=== PATIENT | male | born 1945 | race Caucasian/White ===

== ENCOUNTER → 2025-02-21 13:36 | Outpatient (REF) | payer MEDICARE, SELFPAY | LOC: RAD 13:36 | PROVIDERS: ATTENDING PHYSICIAN Surgery | DX: K40.20 Bilateral inguinal hernia, without obstruction or gangrene, not specified as recurrent (principal) | CPT/HCPCS: 74177; Q9967 ==

== ENCOUNTER 2025-03-27 06:20 | Day surgery (SDC) | payer MEDICARE, SELFPAY ==
[2025-03-13 09:18] LABS: Hematocrit 46.7 % (39.0-52.0); Hemoglobin 15.3 g/dL (13.0-18.0); Mean Corp Hgb Conc. 32.8 g/dL (33.0-37.0); Mean Corpuscular Volume 90.9 fL (80.0-94.0); Platelet Count 197 10^3/uL (130-400); Red Cell Dist. Width 12.7 % (11.5-14.5)
[2025-03-13 10:14] LABS: Blood Urea Nitrogen 16 mg/dl (9-20); Calcium 9.3 mg/dl (8.4-10.2); Carbon Dioxide 28 mmol/L (22-30); Chloride 107 mmol/L (98-107); Glucose 86 mg/dl (70-99); Potassium 4.2 mmol/L (3.5-5.1); Sodium 141 mmol/L (135-145); eGFR > 60.00
[2025-03-13 13:35] VITALS: BMI 25.2
[2025-03-27] VITALS (8 sets, daily range): BP systolic 103–163; BP diastolic 72–102; BMI 25.2
[2025-03-27] MEDS: TYLENOL 1000 MG PO (07:42)
[2025-03-27] MEDS: NORMOSOL-R/PLASMALYTE-A 1000 IV (07:49)
[2025-03-27] MEDS: EMEND 40 MG PO (08:10)
== END 2025-03-27 13:15 | disposition home or self-care (01) ==
LOC: SDS 06:20
PROVIDERS: ATTENDING PHYSICIAN Surgery
DX: K40.20 Bilateral inguinal hernia, without obstruction or gangrene, not specified as recurrent (principal)
CPT/HCPCS: 49650; 36415; 80048; 85027; 93005; C1781

== ENCOUNTER 2025-05-16 01:41 | Emergency (ER) | payer MEDICARE, SELFPAY ==
[2025-05-16 01:52] VITALS: BP 171/111
[2025-05-16 01:55] VITALS: BP 165/97
[2025-05-16 02:08] LABS: Hematocrit 47.7 % (39.0-52.0); Hemoglobin 15.9 g/dL (13.0-18.0); Mean Corp Hgb Conc. 33.3 g/dL (33.0-37.0); Mean Corpuscular Volume 87.7 fL (80.0-94.0); Nucleated Red Blood Cells % 0 % (-); Platelet Count 200 10^3/uL (130-400); Red Cell Dist. Width 12.8 % (11.5-14.5)
[2025-05-16 02:13] VITALS: BMI 28.3
[2025-05-16 02:18] LABS: INR 0.96; PT 13.3 Sec (11.4-14.6)
[2025-05-16 02:19] LABS: APTT 35.6 Sec (23.4-35.0)
[2025-05-16 02:48] LABS: Troponin I < 0.012 ng/ml
[2025-05-16 03:00] VITALS: BP 125/81
[2025-05-16 03:01] LABS: ALT (SGPT) 23 U/L (0-50); AST (SGOT) 22 U/L (17-59); Albumin 4.4 g/dl (3.5-5.0); Alkaline Phosphatase 78 U/L (38-126); Blood Urea Nitrogen 17 mg/dl (9-20); Calcium 9.6 mg/dl (8.4-10.2); Carbon Dioxide 30 mmol/L (22-30); Chloride 105 mmol/L (98-107); Estimated Creatinine Clearance 82 ml/min; Glucose 116 mg/dl (70-99); Potassium 4.5 mmol/L (3.5-5.1); Sodium 143 mmol/L (135-145); Total Protein 7.0 g/dl (6.3-8.2); eGFR > 60.00
[2025-05-16 04:00] VITALS: BP 130/86
--- NOTE | 2025-05-16 04:36 | ED.GENMED ---
History of Present Illness
General
Chief Complaint: Chest Pain
Source: patient
Exam Limitations: none
Time Seen by Provider: 05/16/25 04:35
Nursing documentation reviewed up to this point in time: agreed with
History of Present Illness
History of Present Illness:
This is a 79-year-old male with past medical history of hiatal hernia, GERD, who presents to the ER today with concerns of substernal chest pain starting yesterday. Patient reports that this initially occurred after consuming a lot of salami.
Patient reports that felt like his typical reflux symptoms however when he went to bed he woke up with the same symptoms and noticed that they were more severe. Patient was concerned that he may be having a heart attack. Patient reports that he
felt persistent tightness in his chest in the epigastric area. He reports that he also had a brief period of belching associated nausea. He has no associated back pain. No associate upper extremities paresthesias. He denies any lower abdominal
pain. He denies any fevers or chills. Patient denies any shortness of breath, dizziness, lightheadedness at this time. No recent syncopal episodes. He has no personal cardiac history. His primary care provider was also climatology professor but he does
not recall having any prior stress testing done or cardiac catheterization done. He currently does not follow with a climatology professor. His primary care provider just retired and he is working on establishing care with a new provider.
Past History
Past History
ED Past Medical History: GERD
ED Past Surgical History: None
Social History
Tobacco: Non-smoker
Alcohol: Occasional
Drug: None
Review of Systems
Review of Systems
All Other Systems: ROS reviewed and negative except as documented in HPI and ROS
Phy Exam
Physical Exam
Physical Exam:
General: Patient is well appearing and in no acute distress; non-toxic
Skin: Warm and dry, no rashes or lesions
Head: Normocephalic, atraumatic
Eyes: Sclera non-icteric. EOMs intact.
Cardiac: Regular rate and rhythm, no murmurs, no tenderness palpation of external chest wall
Peripheral Vascular: No lower extremity swelling or edema
Pulm: Normal respiratory effort, no wheezes, rales, rhonchi
Abdomen: No abdominal tenderness to palpation, negative murphys sign
Neuro: CN II-XII intact, no focal neurologic deficits.
Psychiatric: Appropriate mood and affect.
Scores
Heart Score for Chest Pain Patients
STEMI patient?: No
History: Moderately Suspicious
ECG: Normal
Age: >/= 65 years
Risk Factors: 1 or 2 Risk Factors
Troponin: </= Normal Limit
Heart Score for Chest Pain Patients: 4
Heart Score Risk: 20.3% MACE over next 6 weeks
Course
Orders/Labs/Results
Orders:
Orders
05/16/25 01:47
ECG [Electrocardiogram (*1)] Urgent
Reason for Study: Chest Pain
05/16/25 01:48
EKG- Treatment ONCE
05/16/25 02:02
Complete Blood Count/With Diff Urgent
Comprehensive Metabolic Panel Urgent
Lipase Urgent
Comment: ADDED
PTT Urgent
Prothrombin Time Urgent
Troponin I Urgent
05/16/25 04:48
EKG- Treatment ONCE
Mag Hydrox/Al Hydrox/Simeth [Maalox] 30 ml Phenobarb/Hyoscy/Atropine/Scop [] 10 ml Viscous Lidocaine 2% [Xylocaine Viscous Cup] 10 ml PO NOW
CR Chest - 2 Views Urgent
Comment:
Reason For Exam: chest pain
05/16/25 04:51
Mag Hydrox/Al Hydrox/Simeth [Maalox] 30 ml .ROUTE .STK-MED ONE
Phenobarb/Hyoscy/Atropine/Scop [] 10 ml .ROUTE .STK-MED ONE
Viscous Lidocaine 2% [Xylocaine Viscous Cup] 15 ml .ROUTE .STK-MED ONE
05/16/25 04:54
Add On- LAB Urgent
Tests Added?: lipase
05/16/25 05:00
Electrocardiogram (*1) Urgent
Reason for Study: Chest Pain
05/16/25 05:04
Troponin I Urgent
Abnormal Lab Results
05/16/25
02:02
APTT 35.6 H Sec
(23.4-35.0)
Glucose 116 H mg/dl
(70-99)
05/16/25 02:02
05/16/25 02:02
Vital Signs
Initial and Last Documented VS:
Initial Vital Signs
Temp Pulse Resp BP Pulse Ox
98.1 F 105 24 171/111 96
05/16/25 01:52 05/16/25 01:52 05/16/25 01:52 05/16/25 01:52 05/16/25 01:52
Last Documented Vital Signs
Temp Pulse Resp BP Pulse Ox
98.1 F 76 21 132/84 96
05/16/25 01:52 05/16/25 06:30 05/16/25 06:30 05/16/25 06:00 05/16/25 06:30
MDM/Problems Addressed
Differential Diagnosis Includes:
Differentials include ACS, costochondritis, GERD/gastritis, esophagitis, pancreatitis
MDM/Problems Addressed:
This is a 79-year-old male with past medical history of hiatal hernia, GERD, who presents to the ER today with concerns of substernal chest pain starting yesterday. Pain is substernal. Some epigastric discomfort as well.
No palpitations, sob, recent long distance travel, redness or swelling in legs
ECG left axis deviation with RBB but no ischemia
Troponin undetectable x2
lipase normal cxr normal
symptomatic resolvent completely with GI cocktail
Pt stable for discharge
Chest pain hotline
Chronic conditions affecting care:
htn, GERD, hiatal hernia
*Pulse Oximetry
SaO2: 95
Oxygen Mode of Delivery: Room air
Patient hypoxic: no
*Critical Care Note
Total Time (30-74mins, 75-104mins- exclusive of procedures): Not Applicable
ED Attending Note
-
Portions of this chart may have been created with voice recognition software.� Occasional wrong word or��sound alike� substitutions may have occurred due to the inherent limitations of voice recognition software.
Discharge Plan
Departure
Patient Disposition: Home (Routine Discharge)
Date of Disposition: 05/16/25
Time of Disposition: 06:37
Patient with high blood pressure during this ER visit?: Yes
Condition: Good
Discharge Problem:
Chest pain
Instructions: Chest Pain CBC Follow Up, BLOOD PRESSURE
Prescriptions:
No Action
polyethylene glycol 3350 [Miralax] 17 gram Powder In Packet
17 g PO HS
bisacodyl [Dulcolax (bisacodyl)] 5 mg Tablet,Delayed Release (Dr/Ec)
5 mg PO HS PRN (Reason: constipation)
senna 8.6 mg Capsule
8.6 mg PO HS
Fish Oil
2 cap PO BID
Natural Botaincals
2 cap PO BID
guaifenesin 100 mg/5 mL Liquid
200 mg PO Q4H
acetaminophen [acetaminophen] 325 mg tablet
650 mg PO Q4HPRN PRN (Reason: mild pain) Qty: 1 0RF
ibuprofen 200 mg tablet
400 - 600 mg PO Q6HPRN PRN (Reason: moderate pain) Qty: 1 0RF
tramadol 50 mg tablet
50 mg PO Q6HPRN PRN (Reason: severe pain/breakthrough pain) Qty: 10 0RF
Referrals:
NONE,* [Family Provider, Internal Medicine]
Activity Restrictions/Additional Instructions:
Patient receive a call to schedule cardiology appointment in the next few days. She received a call, please call the attached number to schedule appointment. PLEASE RETURN TO ER SHOULD YOU DEVELOP A RETURN OF YOUR SYMPTOMS, SHORTNESS OF BREATH,
DIZZINESS, LIGHTHEADEDNESS, JAW PAIN, LEFT UPPER EXTREMITY PAIN, WEAKNESS
A ONE-SIDED BODY VERSUS OTHER, OR ANY OTHER SIGNS OR SYMPTOMS WORRISOME TO YOU.
Interventions
Interventions:
*Risk Screen - Suicide Last Done: 05/16/25 02:15
*General Assessment Last Done: 05/16/25 02:15
*Neglect/Abuse Screening Last Done: 05/16/25 02:15
*ED- Fall Risk Assessment Last Done: 05/16/25 02:15
*ED COVID-19 Vaccine History Last Done: 05/16/25 02:15
*ED Influenza Vaccine History Last Done: 05/16/25 02:15
*Nursing Disposition Last Done: 05/16/25 06:42
ED- Cardiac Assessment Last Done: 05/16/25 02:15
Discharge Date and Time
Discharge Date/Time: 05/16/25 06:42
Print Language: ARABIC
[2025-05-16] MEDS: MAALOX 50 PO (04:53)
[2025-05-16 05:10] VITALS: BP 142/94
[2025-05-16 05:27] LABS: Lipase 61 U/L (23-300)
[2025-05-16 05:59] LABS: Troponin I < 0.012 ng/ml
[2025-05-16 06:00] VITALS: BP 132/84
== END 2025-05-16 06:42 | disposition home or self-care (01) ==
LOC: EMR 01:41
PROVIDERS: Physician Assistant; EMERGENCY PHYSICIAN Emergency Medicine; REFERRING PHYSICIAN Surgery
DX: R07.9 Chest pain, unspecified (principal); I45.10 Unspecified right bundle-branch block; I10 Essential (primary) hypertension; K21.9 Gastro-esophageal reflux disease without esophagitis; K44.9 Diaphragmatic hernia without obstruction or gangrene
CPT/HCPCS: 99284; 71046; 80053; 83690; 84484; 85025; 85610; 85730; 93005